=== PATIENT | male | born 1990 | race African-American/Black ===

== ENCOUNTER 2020-03-02 14:41 | Emergency (ER) | payer SELFPAY ==
[2020-03-02] MEDS ORDERED: risperiDONE 1 MG TAB ONE (17:50)
[2020-03-02] MEDS ORDERED: traZODone HCl 50 MG TAB ONE ×2 (18:07→22:28)
== END 2020-03-03 13:30 | disposition short-term general hospital (02) ==
LOC: ERS 14:41
DX: R45.851 Suicidal ideations (principal); G43.909 Migraine, unspecified, not intractable, without status migrainosus; F25.9 Schizoaffective disorder, unspecified; F17.210 Nicotine dependence, cigarettes, uncomplicated
CPT/HCPCS: 99285